=== PATIENT | female | born 1985 | race Caucasian/White ===

== ENCOUNTER 2022-05-15 16:03 | Outpatient (REF) | payer MEDICAID, SELFPAY ==
[2022-05-15 18:24] LABS: CT PCR NOT DETECTED (Not Detect.); NG PCR NOT DETECTED (Not Detect.)
[2022-05-16 09:37] LABS: BV Int Neg Control Negative (Negative); BV Int Pos Control Positive (Positive)
[2022-05-20 23:27] LABS: HPV mRNA E6/E7 rflx Not Detected (Not Detected)
== END 2022-05-15 16:04 | disposition home or self-care (01) ==
LOC: HO.LAB 16:03
PROVIDERS: Visit Provider Advanced Practice Midwife
DX: Z01.419 Encounter for gynecological examination (general) (routine) without abnormal findings (principal); Z11.3 Encounter for screening for infections with a predominantly sexual mode of transmission; Z11.8 Encounter for screening for other infectious and parasitic diseases; Z11.51 Encounter for screening for human papillomavirus (HPV)
CPT/HCPCS: 87480; 87491; 87510; 87591; 87624; 87660; 88142